=== PATIENT | female | born 1935 ===

== ENCOUNTER 2020-10-29 10:00 | Inpatient (IN) | payer OTHER ==
[~2020-10-29] VITALS: Ht 157.5 cm; Wt 45.8 kg
[2020-10-29] MEDS ORDERED: SYNTHROID88 MCG PO (14:17)
[2020-10-29] MEDS ORDERED: ACTOS15 MG PO (14:17)
[2020-10-29] MEDS ORDERED: SIMVAST PO (14:18)
[2020-10-29] MEDS ORDERED: ARICEPT5 MG PO (14:18)
[2020-10-29] MEDS ORDERED: ENALAPRIL MALEA10 MG PO (14:18)
[2020-10-29] MEDS ORDERED: ALENDRONATE SOD70 MG PO (14:19)
[2020-11-04] MEDS ORDERED: VASOFLEX TABLE1 EACH (14:42)
[2020-11-04] MEDS ORDERED: SIMVASTATIN20 MG (14:42)
[2020-11-07] MEDS ORDERED: TRAMADOL HCL50 MG PO (13:34)
== END 2020-11-07 16:31 | disposition home or self-care (01) | DRG 330 ==
LOC: ADM 10:00 → SURH 11-04 07:00 → O/R 11-04 07:23 → CIR.AMB 11-04 10:00 → EDSTATUS 11-04 10:00 → SURH 11-04 10:00
PROVIDERS: Urology; ADMIT Surgery; ATTEND Surgery
PROC: 0DTP4ZZ Resection of Rectum, Percutaneous Endoscopic Approach (ICD-10-PCS; 2020-11-04)
PROC: 0DBB4ZZ Excision of Ileum, Percutaneous Endoscopic Approach (ICD-10-PCS; 2020-11-04)
PROC: 0TP98DZ Removal of Intraluminal Device from Ureter, Via Natural or Artificial Opening Endoscopic (ICD-10-PCS; 2020-11-04)
PROC: 0DJD8ZZ Inspection of Lower Intestinal Tract, Via Natural or Artificial Opening Endoscopic (ICD-10-PCS; 2020-11-04)
PROC: 0DBN4ZZ Excision of Sigmoid Colon, Percutaneous Endoscopic Approach (ICD-10-PCS; principal; 2020-11-04 07:00)
PROC: 0T768DZ Dilation of Right Ureter with Intraluminal Device, Via Natural or Artificial Opening Endoscopic (ICD-10-PCS; 2020-11-04 07:00)
DX: K57.20 Diverticulitis of large intestine with perforation and abscess without bleeding (principal); N32.1 Vesicointestinal fistula; K63.2 Fistula of intestine; Z20.822 Contact with and (suspected) exposure to COVID-19